=== PATIENT | female | born 1975 | race Native Hawaiian/Other Pacific Islander ===

== ENCOUNTER 2017-09-19 16:49 | Emergency (ER) | payer BC ==
[2017-09-19 17:10] VITALS: BP 129/86; PULSE 82; RESP 18; TEMP 98.7; O2SAT 100
[2017-09-19] MEDS ORDERED: SODIUM CHLOR 0.9% 1000 ML INJ 1,000 ML IV SCH (17:20)
--- NOTE | 2017-09-19 17:26 | PD ---
HPI Chief Complaint: Chest Pain Time Seen by Provider: 17:14 Travel History International Travel<30 days: No Contact w/Intl Traveler<30days: No Traveled to known affect area: No History of Present Illness HPI 42-year-old female presents to the emergency department with epigastric pain with radiation into the chest since upon waking at 6 AM this morning. Patient states it is radiating around to the left chest. She denies vomiting but has nausea and has a long history of chronic reflux. She sees Dr. 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 She has a history of endoscopy in 2007 , and she has not seen her diesel locomotive crane operator for the last year and a half. Patient denies eating anything specifically irritating last evening. She states she did take some omeprazole and Zantac today which did ease her's pains somewhat. She denies shortness of breath, fever, chills, diarrhea, or wheezing. She states her pain is currently 3 out of 10. She is here just to get checked to make sure there is nothing more serious going on. She states typically her symptoms improve by this time. Her nausea continues and she has not been able to eat today. She has no known drug allergies. [facility] Social History Alcohol Use: No Tobacco Use: No Substance Use: No Allergies-Medications (Allergen,Severity, Reaction): Coded Allergies: No Known Allergies (Unverified , 09/19/17) Reported Meds & Prescriptions Reported Meds & Active Scripts Active Magic Mouthwash Adult Liq (Multi-Ingredient Mouthwash/Gargle) 120 Ml Susp 10 Ml SWISH-SWAL ACHS Each 5mL contains: Nystatin 200,000units, Diphenhydramine 4.25mg, Viscous Lidocaine 10mg, Bo syrup 0.8 mL Carafate (Sucralfate) 1 Gram Tab 1 Gm PO QID On empty stomach Omeprazole 40 Mg Cap 40 Mg PO DAILY Reported Ranitidine (Ranitidine HCl) 150 Mg Tab 150 Mg PO DAILY Review of Systems Except as stated in HPI: all other systems reviewed are Neg General / Constitutional: No: Fever, Chills Eyes: No: Visual changes HENT: No: Headaches Cardiovascular: Positive: Chest Pain or Discomfort (See history of present illness), No: Palpitations, Irregular Rhythm, Tachycardia, Diaphoresis, Syncope , Dyspnea on exertion, Varicosities, Edema, Cyanosis, Varicosities, Phlebitis, Claudication Respiratory: No: Shortness of Breath Gastrointestinal: Positive: Nausea, Abdominal Pain (Epigastric pain.), Dysphagia, Loss of Appetite, No: Vomiting, Diarrhea, Hematemesis, Hematochezia, Constipation, Changes in Bowel Habits, Indigestion Genitourinary: No: Urgency, Frequency, Dysuria, Pelvic Pain, Flank Pain, Discharge, Vaginal Bleeding Musculoskeletal: No: Pain Skin: No Rash Neurologic: No: Weakness Psychiatric: No: Depression Endocrine: No: Polydipsia Hematologic/Lymphatic: No: Easy Bruising Physical Exam Narrative GENERAL: Patient appears in mild to moderate distress per SKIN: Warm and dry. Normal color. Normal turgor. HEAD: Atraumatic. Normocephalic. EYES: Pupils equal and round. No scleral icterus. No injection or drainage. ENT: No nasal bleeding or discharge. Mucous membranes pink and moist. Pharynx is clear. Airways patent. NECK: Trachea midline. Supple and nontender. CARDIOVASCULAR: Regular rate and rhythm. RESPIRATORY: No accessory muscle use. Clear to auscultation. Breath sounds equal bilaterally. GASTROINTESTINAL: Abdomen soft, moderate epigastric tenderness without guarding or rebound, nondistended. No CVA tenderness. Hepatic and splenic margins not palpable. MUSCULOSKELETAL: Extremities without clubbing, cyanosis, or edema. No obvious deformities. NEUROLOGICAL: Awake and alert. No obvious cranial nerve deficits. Motor grossly within normal limits. Five out of 5 muscle strength in the arms and legs. Normal speech. PSYCHIATRIC: Appropriate mood and affect; insight and judgment normal. Data Data Last Documented VS Vital Signs Date Time Temp Pulse Resp B/P (MAP) Pulse Ox O2 Delivery O2 Flow Rate FiO2 09/19/17 18:30 74 18 110/70 (83) 99 09/19/17 17:15 Room Air 09/19/17 17:10 98.7 Orders Orders Complete Blood Count With Diff (09/19/17 17:20) Comprehensive Metabolic Panel (09/19/17 17:20) Lipase (09/19/17 17:20) Prothrombin Time / Inr (Pt) (09/19/17 17:20) Act Partial Throm Time (Ptt) (09/19/17 17:20) Urinalysis - C+S If Indicated (09/19/17 17:20) Iv Access Insert/Monitor (09/19/17 17:20) Ecg Monitoring (09/19/17 17:20) Oximetry (09/19/17 17:20) Pantoprazole Inj (Protonix Inj) (09/19/17 17:30) Sodium Chlor 0.9% 1000 Ml Inj (Ns 1000 M (09/19/17 17:20) Sodium Chloride 0.9% Flush (Ns Flush) (09/19/17 17:30) Electrocardiogram (09/19/17 17:20) Chest, Single Ap (09/19/17 17:20) Famotidine Inj (Pepcid Inj) (09/19/17 17:30) Dicyclomine (Bentyl) (09/19/17 17:30) Al-Mag Hy-Si 40-40-4 Mg/Ml Liq (Mag-Al P (09/19/17 17:30) Lidocaine 2% Viscous (Xylocaine 2% Visco (09/19/17 17:30) Ondansetron Odt (Zofran Odt) (09/19/17 17:30) Ckmb (Isoenzyme) Profile (09/19/17 17:26) Troponin I (09/19/17 17:26) Sucralfate (Carafate) (09/19/17 20:00) Ed Discharge Order (09/19/17 20:48) Labs Laboratory Tests Test 09/19/17 17:36 09/19/17 19:20 White Blood Count 6.1 TH/MM3 Red Blood Count 5.00 MIL/MM3 Hemoglobin 13.3 GM/DL Hematocrit 40.1 % Mean Corpuscular Volume 80.1 FL Mean Corpuscular Hemoglobin 26.5 PG Mean Corpuscular Hemoglobin Concent 33.1 % Red Cell Distribution Width 14.5 % Platelet Count 229 TH/MM3 Mean Platelet Volume 7.6 FL Neutrophils (%) (Auto) 45.0 % Lymphocytes (%) (Auto) 37.5 % Monocytes (%) (Auto) 12.5 % Eosinophils (%) (Auto) 4.3 % Basophils (%) (Auto) 0.7 % Neutrophils # (Auto) 2.7 TH/MM3 Lymphocytes # (Auto) 2.3 TH/MM3 Monocytes # (Auto) 0.8 TH/MM3 Eosinophils # (Auto) 0.3 TH/MM3 Basophils # (Auto) 0.0 TH/MM3 CBC Comment DIFF FINAL Differential Comment Prothrombin Time 9.9 SEC Prothromb Time International Ratio 1.0 RATIO Activated Partial Thromboplast Time 26.1 SEC Blood Urea Nitrogen 8 MG/DL Creatinine 0.79 MG/DL Random Glucose 102 MG/DL Total Protein 7.9 GM/DL Albumin 3.9 GM/DL Calcium Level 9.0 MG/DL Alkaline Phosphatase 65 U/L Aspartate Amino Transf (AST/SGOT) 19 U/L Alanine Aminotransferase (ALT/SGPT) 16 U/L Total Bilirubin 0.3 MG/DL Sodium Level 141 MEQ/L Potassium Level 3.9 MEQ/L Chloride Level 103 MEQ/L Carbon Dioxide Level 26.8 MEQ/L Anion Gap 11 MEQ/L Estimat Glomerular Filtration Rate 80 ML/MIN Total Creatine Kinase 56 U/L Troponin I LESS THAN 0.02 NG/ML Lipase 141 U/L Urine Color LIGHT-YELLOW Urine Turbidity CLEAR Urine pH 7.0 Urine Specific [place] 1.004 Urine Protein NEG mg/dL Urine Glucose (UA) NEG mg/dL Urine Ketones NEG mg/dL Urine Occult Blood NEG Urine Nitrite NEG Urine Bilirubin NEG Urine Urobilinogen LESS THAN 2.0 MG/DL Urine Leukocyte Esterase NEG Urine RBC LESS THAN 1 /hpf Urine Squamous Epithelial Cells <1 /hpf Microscopic Urinalysis Comment CULT NOT INDICATED MDM Medical Decision Making Medical Screen Exam Complete: Yes Emergency Medical Condition: Yes Medical Record Reviewed: Yes Differential Diagnosis Esophageal reflux. Esophageal spasm. Gastritis. Atypical chest pain. Cardiac syndrome Narrative Course Patient is medically stable at time of exam. EKG and chest x-ray are ordered. EKG shows normal sinus rhythm without any significant changes. Labs ordered including CBC, CMP, lipase, urinalysis, coagulation studies, cardiac panel. IV access is obtained the patient is given 40 mg pantoprazole IV as well as 20 mg Pepcid IV Patient was given 4 mg Zofran ODT p.o., and 10 mg of Bentyl p.o. Patient is given a GI cocktail. Patient is given 1000 mL of normal saline bolus. EKG shows normal sinus rhythm without ST changes. CBC is unremarkable. Coagulation studies are normal. Chemistries are unremarkable. Troponin is less than 0.02. Urinalysis is unremarkable. Patient feels improved after the above treatment plan Patient is given Carafate 1 g p.o. now Patient is felt to have esophagitis from chronic reflux. Patient is felt stable for discharge on omeprazole 40 mg daily. #30. Patient is also started on Carafate 1 g 4 times daily as directed #120. Patient also given Magic mouthwash to be taken as needed for esophageal pain 10 mL's swish and swallow, 120 mL's. Patient is referred to Dr. Gates for further GI workup. Diagnosis Primary Impression: Esophagitis Additional Impression: Gastric reflux syndrome Referrals: Eveline Oliveira MD call for appointment Patient Instructions: General Instructions, Omeprazole (By mouth), Sucralfate ( By mouth) Additional Instructions: EKG shows normal sinus rhythm without ST changes. CBC is unremarkable. Coagulation studies are normal. Chemistries are unremarkable. Troponin is less than 0.02. Urinalysis is unremarkable Patient feels improved after the above treatment plan Patient is given Carafate 1 g p.o. now Patient is felt to have esophagitis from chronic reflux. Patient is felt stable for discharge on omeprazole 40 mg daily. #30. Patient is also started on Carafate 1 g 4 times daily as directed #120. Patient also given Magic mouthwash to be taken as needed for esophageal pain 10 mL's swish and swallow, 120 mL's. Patient is referred to Dr. Gates for further GI workup. Med/Other Pt SpecificInfo: Prescription(s) given Scripts Ouiwnvly-Mymtfwmenzzdnhd-Pvdxjxqrn Liq (Magic Mouthwash Adult Liq) 120 Ml Susp 10 ML SWISH-SWAL ACHS for Mouth sores, #120 ML 0 Refills Each 5mL contains: Nystatin 200,000units, Diphenhydramine 4.25mg, Viscous Lidocaine 10mg, Bo syrup 0.8 mL Prov: Guera Adams DO 09/19/17 Sucralfate (Carafate) 1 Gram Tab 1 GM PO QID for Ulcer Prevention, #120 TAB 0 Refills On empty stomach Prov: Guera Adams DO 09/19/17 Omeprazole (Omeprazole) 40 Mg Cap 40 MG PO DAILY, #30 CAP 0 Refills Prov: Guera Adams DO 09/19/17 Disposition: DISCHARGE HOME Condition: Stable Aiden Boone September 19, 2017 17:26
[2017-09-19] MEDS ORDERED: RANI150T PO (17:28)
[2017-09-19] MEDS ORDERED: DICYCLOMINE HCL 10 MG CAP PO ONE (17:30)
[2017-09-19] MEDS ORDERED: ALUMINUM/MAGNESIUM/SIMETH 30 ML CUP PO ONE (17:30)
[2017-09-19] MEDS ORDERED: LIDOCAINE VISCOUS 2% SOLN 15 ML UDC PO ONE (17:30)
[2017-09-19] MEDS ORDERED: FAMOTIDINE 20 MG/2 ML VIAL IV PUSH ONE (17:30)
[2017-09-19] MEDS ORDERED: ONDANSETRON ODT 4 MG TAB PO ONE (17:30)
[2017-09-19] MEDS ORDERED: SODIUM CHLORIDE 0.9% FLUSH 10 ML FLUSH IV FLUSH PRN (17:30)
[2017-09-19] MEDS ORDERED: PANTOPRAZOLE SODIUM 40 MG VIAL IVP ONE (17:30)
[2017-09-19 18:06] LABS: AUTOMATED NEUTROPHIL # 2.7 TH/MM3 (1.8-7.7); BASOPHIL % 0.7 % (0.0-2.0); EOSINOPHIL # 0.3 TH/MM3 (0-0.4); EOSINOPHIL % 4.3 % (0.0-4.0); HEMATOCRIT 40.1 % (35.0-46.0); HEMOGLOBIN 13.3 GM/DL (11.6-15.3); LYMPH % 37.5 % (9.0-44.0); LYMPHOCYTE # 2.3 TH/MM3 (1.0-4.8); MEAN CELL VOLUME 80.1 FL (80.0-100.0); MEAN CORPUSCULAR HEMOGLOBIN 26.5 PG (27.0-34.0); MEAN CORPUSCULAR HGB CONC 33.1 % (32.0-36.0); MEAN PLATELET VOLUME 7.6 FL (7.0-11.0); MONO % 12.5 % (0.0-8.0); MONOCYTE # 0.8 TH/MM3 (0-0.9); PLATELET COUNT 229 TH/MM3 (150-450); RED CELL DISTRIBUTION WIDTH 14.5 % (11.6-17.2); WHITE BLOOD COUNT 6.1 TH/MM3 (4.0-11.0)
--- NOTE | 2017-09-19 18:11 | RADRPT ---
EXAM DATE: 09/19/2017 6:07 PM EDT AGE/SEX: 42 years / Female INDICATIONS: Chest pain today. CLINICAL DATA: This is the patient's initial encounter. Patient reports that signs and symptoms have been present for 1 day and indicates a pain score of 8/10. MEDICAL/SURGICAL HISTORY: None. None. COMPARISON: No prior [facility] exams available for comparison. FINDINGS: A single AP view of the chest demonstrates the lungs to be symmetrically aerated without evidence of mass, infiltrate or effusion. The cardiomediastinal contours are unremarkable. Osseous structures a re intact. CONCLUSION: 1. No acute cardiopulmonary disease. Electronically signed by: Jarret Gray MD 09/19/2017 6:10 PM EDT
[2017-09-19 18:15] LABS: PROTHROMBIN TIME - PATIENT 9.9 SEC (9.8-11.6)
[2017-09-19 18:27] LABS: ALBUMIN 3.9 GM/DL (3.4-5.0); ALT (GPT) 16 U/L (10-53); AST (GOT) 19 U/L (15-37); BICARBONATE 26.8 MEQ/L (21.0-32.0); BLOOD UREA NITROGEN 8 MG/DL (7-18); CHLORIDE 103 MEQ/L (98-107); CREATININE 0.79 MG/DL (0.50-1.00); GLOMERULAR FILTRATION RATE 80 ML/MIN (>89); GLUCOSE,RANDOM 102 MG/DL (74-106); SODIUM (NA) 141 MEQ/L (136-145)
[2017-09-19 18:29] LABS: ALKALINE PHOSPHATASE 65 U/L (45-117); TOTAL BILIRUBIN ADULT 0.3 MG/DL (0.2-1.0); TOTAL PROTEIN 7.9 GM/DL (6.4-8.2)
[2017-09-19 18:30] VITALS: BP 110/70; PULSE 74; RESP 18; O2SAT 99
[2017-09-19 18:48] LABS: TROPONIN I LESS THAN 0.02 NG/ML (0.02-0.05)
[2017-09-19] MEDS ORDERED: MAGICADU2 SWISH-SWAL (19:51)
[2017-09-19] MEDS ORDERED: OMEP40CA2 PO (19:51)
[2017-09-19] MEDS ORDERED: CARA1TAB6 PO (19:51)
[2017-09-19] MEDS ORDERED: SUCRALFATE 1 GM TAB PO ONE (20:00)
[2017-09-19 20:30] LABS: BILIRUBIN, URINE NEG (NEG); BLOOD, URINE NEG (NEG); GLUCOSE,URINE NEG (NEG); KETONE, URINE NEG (NEG); NITRITE,URINE NEG (NEG); SQUAMOUS EPITHELIAL CELL URINE <1 /hpf (0-5); URINE COLOR LIGHT-YELLOW (YELLW/STRAW); URINE LEUKOCYTE ESTERASE NEG (NEG)
--- NOTE | 2017-09-20 14:48 | EKG ---
Date Performed: 09/19/2017 Time Performed: 17:22:22 PTAGE: 42 years EKG: Sinus rhythm NORMAL ECG NO PREVIOUS TRACING DOCTOR: Dagoberto Melton Interpretating Date/Time 09/20/2017 14:45:34
== END 2017-09-19 21:15 | disposition home or self-care (01) ==
LOC: NEPC 16:49
DX: K21.0 Gastro-esophageal reflux disease with esophagitis (principal)
CPT/HCPCS: 71045; 80053; 81001; 82550; 83690; 84484; 85025; 85610; 85730; 93005; 96361; 96374; 96375; 99285; C9113; J7030